=== PATIENT | female | born 1945 | race Caucasian/White ===

== ENCOUNTER → 2024-06-07 | Outpatient (CLI) | payer BC ==
[2024-06-07 10:29] LABS: BASO # 0.1 10*3/uL (0.0-0.1); BASO % 1.3 % (0.0-1.0); EOS # 0.2 10*3/uL (0.0-0.4); EOS % 3.2 % (1.0-4.0); HEMATOCRIT 39.7 % (37.0-47.0); LYMPH % 21.4 % (27.0-41.0); MEAN CORPUSCULAR HGB 30.4 pg (27.0-31.0); MEAN PLATELET VOLUME 9.9 fl (9.6-12.3); MONO # 0.4 10*3/uL (0.1-1.0); MONO % 7.6 % (3.0-9.0); NEUT # 3.1 10*3/uL (2.3-7.9); NEUT % 66.3 % (47.0-73.0); PLATELET COUNT AUTOMATED 183 10*3/uL (130-400); RED BLOOD COUNT 4.05 10*6/uL (4.10-5.10); RED CELL DISTRI WIDTH 13.6 % (0-14.5); WHITE BLOOD COUNT 4.6 10*3/uL (4.8-10.8)
[2024-06-07 11:09] LABS: ALKALINE PHOSPHATASE 64 U/L (46-116); BUN 17 mg/dl (9-23); CHLORIDE 106 mmol/L (98-107); CHOLESTEROL 137 mg/dL (<200); CPK 80 U/L (34-171); FREE T4 2.02 ng/dl (0.89-1.76); LDL CHOLESTEROL 53 mg/dL (9-159); POTASSIUM 4.3 mmol/L (3.4-5.1); TOTAL PROTEIN 6.9 gm/dL (6.0-8.0); TRIGLYCERIDES 74 mg/dl (<150); VITAMIN D, 25-HYDROXY 55.8 ng/mL (30-100)
[2024-06-07 11:18] LABS: SGPT/ALT < 7 U/L (5-49)
== END | disposition home or self-care (01) ==
LOC: LAB 09:52
PROVIDERS: ATTEND Family Medicine
DX: I10 Essential (primary) hypertension (principal); E78.00 Pure hypercholesterolemia, unspecified; E03.9 Hypothyroidism, unspecified; R53.83 Other fatigue; E55.9 Vitamin D deficiency, unspecified

== ENCOUNTER → 2024-07-11 | Outpatient (CLI) | payer BC ==
[2024-07-11 12:47] LABS: FREE T4 1.24 ng/dl (0.89-1.76)
== END | disposition home or self-care (01) ==
LOC: LAB 11:32
PROVIDERS: ATTEND Family Medicine
DX: E03.9 Hypothyroidism, unspecified (principal)

== ENCOUNTER → 2024-10-10 | Outpatient (CLI) | payer BC ==
[2024-10-10 13:27] LABS: HEMATOCRIT 40.5 % (37.0-47.0); MEAN CELL VOLUME 97.8 fl (81.0-99.0); MEAN CORPUSCULAR HGB 31.6 pg (27.0-31.0); MEAN CORPUSCULAR HGB CONC 32.3 g/dl (33.0-37.0); MEAN PLATELET VOLUME 9.9 fl (9.6-12.3); RED BLOOD COUNT 4.14 10*6/uL (4.10-5.10); RED CELL DISTRI WIDTH 14.2 % (0-14.5); WHITE BLOOD COUNT 6.6 10*3/uL (4.8-10.8)
[2024-10-10 13:49] LABS: TOTAL PROTEIN 7.4 gm/dL (6.0-8.0)
== END | disposition home or self-care (01) ==
LOC: LAB 13:06
PROVIDERS: ATTEND Family Medicine
DX: I10 Essential (primary) hypertension (principal); E03.9 Hypothyroidism, unspecified; E78.00 Pure hypercholesterolemia, unspecified

== ENCOUNTER → 2024-11-20 | Outpatient (CLI) | payer OTHER ==
[~2024-11-20] MED LIST: LEVOTHYROXINE50 MCG PO; LOSARTAN-HCTZ1 EACH PO; ROSUVASTATIN CA10 MG PO
[2024-11-20 15:28] LABS: FREE T4 1.33 ng/dl (0.89-1.76)
== END | disposition home or self-care (01) ==
LOC: LAB 14:40
PROVIDERS: ATTEND Family Medicine
DX: E03.9 Hypothyroidism, unspecified (principal)

== ENCOUNTER → 2025-01-25 | Outpatient (CLI) | payer OTHER | END | disposition home or self-care (01) | LOC: US 10:30 | PROVIDERS: ATTEND Family Medicine | DX: Z12.31 Encounter for screening mammogram for malignant neoplasm of breast (principal); R10.813 Right lower quadrant abdominal tenderness; Z98.890 Other specified postprocedural states ==

== ENCOUNTER → 2025-02-20 | Outpatient (CLI) | payer OTHER ==
[2025-02-20 08:27] LABS: FREE T4 1.45 ng/dl (0.89-1.76)
== END | disposition home or self-care (01) ==
LOC: LAB 07:43 → US 08:00
PROVIDERS: ATTEND Family Medicine
DX: C50.912 Malignant neoplasm of unspecified site of left female breast (principal); E03.9 Hypothyroidism, unspecified

== ENCOUNTER → 2025-02-27 | Outpatient (CLI) | payer OTHER | END | disposition home or self-care (01) | LOC: RAD 10:33 | PROVIDERS: ATTEND Family Medicine | DX: M25.551 Pain in right hip (principal); M25.552 Pain in left hip ==

== ENCOUNTER → 2025-03-29 | Outpatient (CLI) | payer OTHER ==
[~2025-03-29] MED LIST changes: +IOHEXOL 300 MG/ML 100 ML VIAL IV ONE
== END | disposition home or self-care (01) ==
LOC: LAB 07:25 → CT 08:00
PROVIDERS: ATTEND Family Medicine
DX: N28.1 Cyst of kidney, acquired (principal); K57.90 Diverticulosis of intestine, part unspecified, without perforation or abscess without bleeding; K44.9 Diaphragmatic hernia without obstruction or gangrene; M43.17 Spondylolisthesis, lumbosacral region; R10.9 Unspecified abdominal pain; R19.7 Diarrhea, unspecified; R63.4 Abnormal weight loss; Z90.49 Acquired absence of other specified parts of digestive tract; Z98.890 Other specified postprocedural states

== ENCOUNTER → 2025-04-19 | Outpatient (CLI) | payer OTHER ==
[~2025-04-19] MED LIST changes: -IOHEXOL 300 MG/ML 100 ML VIAL IV ONE
[2025-04-19 08:02] LABS: MEAN CELL VOLUME 98.7 fl (81.0-99.0); MEAN CORPUSCULAR HGB 31.0 pg (27.0-31.0); MEAN PLATELET VOLUME 9.8 fl (9.6-12.3); NUCLEATED RED BLOOD CELL 0.0 % (0.0-0.0); NUCLEATED RED BLOOD CELL 0.0 10*3/uL (0.0-0.0); PLATELET COUNT AUTOMATED 161.0 10*3/uL (130-400); RED CELL DISTRI WIDTH 12.6 % (0-14.5)
[2025-04-19 08:40] LABS: BUN 19 mg/dl (9-23); FREE T4 1.82 ng/dl (0.89-1.76); LDL CHOLESTEROL 68 mg/dL (9-159)
[2025-04-19 08:41] LABS: SGPT/ALT < 7 U/L (5-49)
[2025-04-19 09:57] LABS: VITAMIN D, 25-HYDROXY 67.5 ng/mL (30-100)
== END | disposition home or self-care (01) ==
LOC: LAB 07:41
PROVIDERS: ATTEND Family Medicine
DX: E78.00 Pure hypercholesterolemia, unspecified (principal); E55.9 Vitamin D deficiency, unspecified; Z79.899 Other long term (current) drug therapy

== ENCOUNTER → 2025-04-30 | Outpatient (CLI) | payer OTHER | END | disposition home or self-care (01) | LOC: RAD 09:56 | DX: R91.8 Other nonspecific abnormal finding of lung field (principal) ==